=== PATIENT | female | born 1945 | race Caucasian/White ===

== ENCOUNTER 2021-09-14 10:22 | Outpatient (CLI) | payer MEDICARE, BC, SELFPAY | END 2021-09-14 10:23 | disposition home or self-care (01) | LOC: INJ CL 10:25 | PROVIDERS: PCP Family Medicine; Visit Provider Family Medicine | DX: M54.16 Radiculopathy, lumbar region (principal); M51.36 Other intervertebral disc degeneration, lumbar region | CPT/HCPCS: 64483; J1100; Q9966 ==

== ENCOUNTER 2021-09-28 10:00 | Outpatient (RCR) | payer MEDICARE, BC, SELFPAY | END 2021-09-28 14:30 | disposition home or self-care (01) | PROVIDERS: PCP Family Medicine; Visit Provider Orthopaedic Surgery Sports Medicine | DX: M79.622 Pain in left upper arm (principal); Z51.89 Encounter for other specified aftercare | CPT/HCPCS: 97110; 97140; X5282 ==

== ENCOUNTER 2024-10-01 10:04 | Outpatient (CLI) | payer MEDICARE, SELFPAY | END 2024-10-01 10:05 | disposition home or self-care (01) | PROVIDERS: PCP Family Medicine; Visit Provider Family Medicine | DX: M54.16 Radiculopathy, lumbar region (principal); M51.369 Other intervertebral disc degeneration, lumbar region without mention of lumbar back pain or lower extremity pain | CPT/HCPCS: 64483 ==